=== PATIENT | female | born 1975 | race Two or more races ===

== ENCOUNTER 2018-06-09 09:15 | Inpatient (IN) | payer OTHER ==
[~2018-06-09] VITALS: Ht 167.6 cm; Wt 91.6 kg
[2018-06-09] MEDS ORDERED: ZANTAC150 M3 PO (12:46)
[2018-06-09] MEDS ORDERED: CALTRATE (12:47)
[2018-06-09] MEDS ORDERED: MEGACE PO (12:47)
[2018-06-09] MEDS ORDERED: COLAGEN PO (12:48)
[2018-06-15] MEDS ORDERED: GABAPENTIN600 MG PO (07:02)
[2018-06-15] MEDS ORDERED: POLY119PG PO (07:02)
[2018-06-15] MEDS ORDERED: GAS RELIEF125 MG PO (07:02)
[2018-06-15] MEDS ORDERED: IBUPROFEN800 MG PO (07:02)
== END 2018-06-15 10:00 | disposition home or self-care (01) | DRG 743 ==
LOC: O/R 06-13 05:40 → OB/GYN 06-13 05:40 → RECOVERY 06-13 09:15 → OB/GYN 06-13 10:41 → RECOVERY 06-13 11:45 → OB/GYN 06-15 10:00
PROVIDERS: ADMIT Obstetrics & Gynecology
PROC: 0UT90ZZ Resection of Uterus, Open Approach (ICD-10-PCS; principal; 2018-06-13 11:45)
DX: N85.01 Benign endometrial hyperplasia (principal); D25.1 Intramural leiomyoma of uterus; N80.0 Endometriosis of uterus